=== PATIENT | female | born 1955 | race Caucasian/White ===

== ENCOUNTER → 2016-12-29 | Outpatient (CLI) | payer OTHER ==
[~2016-12-29] MED LIST: AMLODIPINE BESYL5 MG PO; ASPIRIN81 M2 PO; IRON325 MG PO; LIPITOR20 MG PO; OMEPRAZOLE20 M1 PO; PERCOCET5/325 PO; TEKTURNA HCT 31 EACH PO; VITAMIN D32000 UNIT PO; XARELTO10 MG PO
--- NOTE | ~2016-12-29 | EKG ---
PATIENT: JUAQUIN BROCK UNIT #: [id number] Ventricular Rate: 67 BPM Atrial Rate: 67 BPM P-R Interval: 154 ms QRS Duration: 78 ms Q-T Interval: 388 ms QTC Calculation(Bezet): 409 ms P Stinnett: 29 degrees Calculated R Stinnett: -10 degrees Calculated T Stinnett: -7 degrees Diagnosis Line: Normal sinus rhythm Diagnosis Line: Nonspecific ST and T wave abnormality Diagnosis Line: Otherwise normal ECG Diagnosis Line: No previous ECGs available Diagnosis Line: Confirmed by MIGUELITO CAMPO MD ([id number]) on 12/30/2016 Diagnosis Line: 9:35:24 AM INTERPRETING MD: ALBER PARADA
[2016-12-29 09:39] LABS: HEMATOCRIT 44.6 % (35.0-45.0); HEMOGLOBIN 14.6 gm/dL (12.0-16.0); MEAN CELL VOLUME 85.8 FL (83-96); MEAN CORPUSCULAR HEMOGLOBIN 28.1 PG (28-34); MEAN CORPUSCULAR HGB CONC 32.8 g/dL (30-36); MEAN PLATELET VOLUME 6.8 FL (6.5-11.5); RED BLOOD COUNT 5.2 X10e (3.90-5.30); RED CELL DISTRIBUTION WIDTH 12.8 % (11.0-15.5); WHITE BLOOD COUNT 5.7 X10e3 (4.0-10.5)
[2016-12-29 10:24] LABS: BUN/CREATININE RATIO 23.33; CALCIUM SERUM 9.4 mg/dL (8.4-10.2); CREATININE SERUM 0.6 mg/dL (0.6-1.4); GLOM FILT RATE Estimated 97.7 mL/min (>60); POTASSIUM 3.6 mmol/L (3.5-5.1)
[2016-12-29 10:46] LABS: URINE APPEARANCE CLEAR; URINE BILIRUBIN NEG (NEG); URINE BLOOD NEG (NEG); URINE COLOR YELLOW; URINE GLUCOSE NEG (NEG); URINE KETONE NEG (NEG); URINE LEUKOCYTE ESTERASE NEG (NEG); URINE NITRATE NEG (NEG); URINE PROTEIN NEG (NEG); URINE SPECIFIC GRAVITY 1.008 (1.003-1.035); URINE UROBILINOGEN 0.2 MG/DL (NEG)
[2016-12-29 10:49] LABS: CULTURE INDICATED? NO
== END | disposition home or self-care (01) ==
LOC: CAMB 08:56
PROVIDERS: Orthopaedic Surgery
DX: Z01.818 Encounter for other preprocedural examination (principal); M19.071 Primary osteoarthritis, right ankle and foot; R94.31 Abnormal electrocardiogram [ECG] [EKG]
CPT/HCPCS: 36415; 80048; 81003; 85027; 87070; 93005

== ENCOUNTER 2017-01-10 11:23 | Inpatient (IN) | payer OTHER ==
--- NOTE | ~2017-01-10 | DS ---
Unit #: [id number] #: [id number] Patient: JUAQUIN BROCK [id number] [address] [place], [place] [address] [id number] I MR#: [id number] NAME: JUAQUIN BROCK ROOM: 453 Age: 61 Sex: F Admission Date: 01/10/2017 : 1955 Discharge Date: 01/12/2017 Attending Physician: Everardo Costello M.D. Referring Physician: Everardo Costello M.D. Primary Care Physician: Eliza Tariq M.D. DISCHARGE SUMMARY CHIEF COMPLAINT Right ankle pain. 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 HOSPITAL COURSE The patient was taken to the operating room on the date of admission where she underwent right total ankle arthroplasty using the right [employer] Infinity total ankle replacement implant. There were no operative complications. She had a stable postoperative course. DVT prophylaxis was achieved with Xarelto. She was seen by physical therapy on a daily basis and instructed on how to remain nonweightbearing on her affected side. Dressing was changed on the second postoperative day. Wounds were healing well. She remained afebrile with stable vital signs. She was ready for discharge on the second postoperative day. FINAL DIAGNOSIS Posttraumatic right ankle arthritis. OPERATION PERFORMED Right total ankle arthroplasty on 01/10/2017. DISPOSITION/RECOMMENDATIONS 1. The patient is discharged home. She will keep the dressing clean, dry and intact and will continue ice and elevation and will continue to be nonweightbearing on her right leg for a total of 2 weeks. 2. Discharge medications remain the same as her home medications with the addition of Percocet 5/325 mg 1 or 2 p.o. q.4-6 hours p.r.n. pain (dispense 40) and Xarelto 10 mg p.o. daily for 12 days. 3. Follow up in my office in 2 weeks for dressing change, suture removal and application of a Cam Boot. Will start gentle range of motion and weightbearing at that time. Dictated by... Joseph Payne/vinicio TD: 01/12/2017 08:35 JOB #: [id number] Unit #: [id number] #: [id number] Patient: JUAQUIN BROCK DISCHARGE SUMMARY Page 1 of 1 X Aleksandra Costello MD X DISCHARGE SUMMARY
--- NOTE | ~2017-01-10 | OR ---
Unit #: [id number] #: [id number] Patient: JUAQUIN BROCK [id number] [address] [place], [place] [address] [id number] I MR#: [id number] NAME: JUAQUIN BROCK. ROOM: [facility] Date of Procedure: 01/10/2017 Admission Date: 01/10/2017 Surgeon: Everardo Costello M.D. : 1955 Attending Physician: Everardo Costello M.D. Referring Physician: Everardo Costello M.D. Primary Care Physician: Eliza Tariq M.D. OPERATIVE REPORT PREOPERATIVE DIAGNOSIS Right ankle arthritis. POSTOPERATIVE DIAGNOSIS Right ankle arthritis. PROCEDURE PERFORMED Right total ankle arthroplasty (37628). ASSISTANTS LORRAINE Larson and LORRAINE Horan. IMPLANTS [employer] size 2 tibia, size 1 talus, 6 mm poly. INDICATIONS FOR SURGERY The patient is a 61-year-old female with end-stage right ankle arthritis unresponsive to conservative care. She fractured her ankle 33 years ago and has had subsequent episodes of reinjury. She cannot take anti-inflammatory medication. She has tried injections and bracing without long-term relief. Risks and benefits of fusion versus replacement has been discussed. She elects for ankle replacement. DESCRIPTION OF PROCEDURE The patient underwent right popliteal saphenous block. She was taken to the operating room and placed in supine position. General anesthetic was induced. The right ankle was identified as the correct operative location during the time-out procedure. The IV antibiotic protocol was followed. The right leg was prepped and draped in usual sterile fashion. The leg was exsanguinated and thigh tourniquet was inflated to 300 mmHg. An anterior longitudinal incision measuring 12 cm was made over the ankle. Subcutaneous tissue was divided. The superficial peroneal nerve was identified and preserved. The extensor retinaculum was opened. The interval between the EHL and anterior tibial tendons was opened. The neurovascular bundle was retracted laterally. The joint was opened longitudinally and exposed subperiosteally. The [employer] INFINITY system was utilized. The patient's specific tibial guide was placed on the tibia and pinned into place under C-arm fluoroscopic control. The coronal sizing guide was applied and a size 2 fit the tibia most appropriately. The two drill holes were then made in the medial and lateral shoulders of the distal tibia. The final Unit #: [id number] #: [id number] Patient: JUAQUIN BROCK #2 tibial cutting block was then applied and pinned into place. The tibial and talar cuts were coupled by dorsiflexing the ankle and pinning the talus. Gutter pins were also placed. The tibial cut and talar cut was made and the guide was removed. All pins were removed and the shoulder chisel was utilized. The screw was used to remove the intact bone. The tibia was then checked and sized at a standard 2 tibial component. The 3 punches were then placed in the distal tibia. With the tibial trial in place, a #1 talar trial was placed and positioned appropriately under C-arm fluoroscopic control. It was then pinned into place and removed. The posterior and anterior talar cutting guide was then placed over the pins and the two wing nut screws were placed. The posterior talar cut was made and the anterior talar neck was milled. The talar guide was then removed. The cuts were cleaned up with a rongeur. The #1 talar trial was then applied and was found to fit appropriately. It was pinned into place and the two drill holes for the talar stem were placed. The wound was copiously irrigated. Care was taken to ensure that the medial and lateral gutters were free of all osteophytes with a rongeur. The final #2 tibial component was impacted into place. The final #1 talar component was impacted into place. A #6 poly was then placed and the ankle was stable. Dorsiflexion was present to 5 degrees, plantar flexion 40 degrees. There was no lateral or medial instability. Intraoperative C-arm fluoroscopy documented satisfactory position of the components. A 3-minute dilute Betadine wash was applied and then lavaged out with saline. The tourniquet was released with a total tourniquet time of 77 minutes. Bleeding was controlled with electrocautery. The ankle joint capsule was closed with 2-0 Vicryl [id number] sutures. The extensor retinaculum was closed with 2-0 Vicryl [id number] sutures. Subcutaneous tissue was closed with 3-0 Vicryl. The skin was closed with 3-0 nylon horizontal mattress sutures. Xeroform gauze, dressing, sponges, Webril, and a posterior fiberglass splint were applied. The patient was then transported to the recovery room in stable condition. ESTIMATED BLOOD LOSS Minimal. COMPLICATIONS None. SPECIMENS None. TOURNIQUET TIME 1 hour 17 minutes. Dictated byJoseph Hightower/amber TD: 01/11/2017 01:30 JOB #: [id number] Unit #: [id number] #: [id number] Patient: JUAQUIN BROCK OPERATIVE REPORT Page 1 of 1 X Aleksandra Costello MD X PROCEDURE OPERATIVE NOTE
--- NOTE | ~2017-01-10 | HP ---
Unit #: [id number] #: [id number] Patient: JUAQUIN BROCK [id number] [address] [place], [place] [address] [id number] I MR#: [id number] NAME: JUAQUIN BROCK. ROOM: 453 Age: 61 Sex: F Admission Date: 01/10/2017 : 1955 Attending Physician: Everardo Costello M.D. Referring Physician: Everardo Costello M.D. Primary Care Physician: Eliza Tariq M.D. HISTORY AND PHYSICAL CHIEF COMPLAINT Right ankle pain. HISTORY OF PRESENT ILLNESS The patient is a 61-year-old female with end-stage right ankle arthritis unresponsive to conservative care. She had a fracture of the ankle 33 years ago and has had subsequent episodes of re-injury. She has pain with activities of daily living. She cannot take anti-inflammatory medication because of splenic ulcers. She has had injections and bracing without significant long-term relief. Risks and benefits of ankle fusion versus replacement had been discussed. She agrees to proceed with total ankle arthroplasty. PAST MEDICAL HISTORY 1. Anemia. 2. Arthritis. 3. Hypertension. 4. Hypercholesterolemia. 5. Gastroesophageal reflux disease. HOME MEDICATIONS 1. Atorvastatin. 2. Amlodipine. 3. Omeprazole. 4. Aspirin. 5. Iron. 6. Vitamin D. MEDICAL ALLERGIES Latex and tape. PAST SURGICAL HISTORY 1. Breast reduction. 2. Left bunionectomy. 3. Inguinal hernia repair. 4. Left knee arthroscopy. 5. Tubal ligation. 6. Hand cyst excision. 7. Two C-sections. SOCIAL HISTORY The patient is a social drinker. She does not smoke. She does not use illicit drugs. 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 Unit #: [id number] #: [id number] Patient: JUAQUIN BROCK PHYSICAL EXAMINATION GENERAL: A well-developed, well-nourished female in no acute distress. HEENT: Pharynx is clear. NECK: The neck is supple without masses. HEART: Reveals a regular sinus rhythm without murmurs or gallops. LUNGS: Clear. ABDOMEN: Soft and nontender without masses or organomegaly. EXTREMITIES: Evaluation of the left foot shows pes planus with hindfoot valgus of about 5 degrees. Right ankle dorsiflexion is zero degrees, plantar flexion 30 degrees. Subtalar motion is normal. The patient has tenderness in the anteromedial ankle and posteromedial ankle. There is crepitus with range of motion of the ankle. Motor strength is normal. Sensation is normal. Pulses are normal. DIAGNOSTIC STUDIES IMAGING: Standing x-rays of the right ankle show joint space narrowing with subchondral sclerosis and without significant varus or valgus deformity. ADMITTING DIAGNOSES Right ankle arthritis. PLAN The patient will undergo right total ankle arthroplasty using the [employer] System. The risks and benefits of this procedure were discussed to include loosening of prosthesis, infection of prosthesis, bleeding, nerve damage, wound healing problems, deep venous thrombosis, pulmonary embolism, anesthetic complications, and need for revision surgery in the future to include fusion. She understands spoken risks and agrees to proceed. Dictated by Joseph Payne/anil TD: 01/05/2017 08:58 JOB #: [id number] HISTORY AND PHYSICAL Page 1 of 1 X Aleksandra Costello MD HISTORY AND PHYSICAL
[~2017-01-10 11:23] MED LIST changes: -IRON325 MG PO; -PERCOCET5/325 PO; -XARELTO10 MG PO
[2017-01-10] MEDS ORDERED: IRON325 MG PO (12:03)
[2017-01-11 03:02] LABS: HEMATOCRIT 38.2 % (35.0-45.0); HEMOGLOBIN 12.8 gm/dL (12.0-16.0)
[2017-01-12 02:39] LABS: HEMOGLOBIN 11.7 gm/dL (12.0-16.0)
[2017-01-12] MEDS ORDERED: PERCOCET5/325 PO (13:00)
[2017-01-12] MEDS ORDERED: XARELTO10 MG PO (13:01)
== END 2017-01-12 16:36 | disposition home or self-care (01) | DRG 470 ==
LOC: CSUR 11:23 → CPACUOF 19:00 → C4B 20:22
PROVIDERS: Orthopaedic Surgery
PROC: 0SRF0JZ Replacement of Right Ankle Joint with Synthetic Substitute, Open Approach (ICD-10-PCS; principal; 2017-01-10 14:30)
DX: M19.171 Post-traumatic osteoarthritis, right ankle and foot (principal); I10 Essential (primary) hypertension; D64.9 Anemia, unspecified; K21.9 Gastro-esophageal reflux disease without esophagitis; E78.00 Pure hypercholesterolemia, unspecified; Z79.82 Long term (current) use of aspirin; Z98.51 Tubal ligation status
CPT/HCPCS: 85014; 85018; 97116; 97161; C1713; C1776; J0690; J1100; J1885; J2270; J2405; J2795; J3010